=== PATIENT | female | born 1955 | race Two or more races ===

== ENCOUNTER 2021-01-29 18:03 | Inpatient (IN) | payer BC ==
[~2021-01-29] VITALS: Ht 149.9 cm; Wt 61.7 kg
[2021-01-29] MEDS ORDERED: ONDANSETRON HCL/PF 4 MG/2 ML VIAL ONE (18:55)
[2021-01-29] MEDS ORDERED: ONDANSETRON HCL/PF 4 MG/2 ML VIAL IVP ONE (19:00)
[2021-01-29] MEDS ORDERED: IV NS 0.9% 1,000 ML BAG IV ONE ×2 (19:00→20:00)
[2021-01-29 19:09] LABS: EOSINOPHILS % (AUTO) 0.2 % (0.0-6.0); HEMOGLOBIN 11.1 g/dL (11.5-14.8); LYMPHOCYTES # (AUTO) 0.6 /CMM (0.8-4.8); WHITE BLOOD COUNT (AUTO) 3.3 K/uL (4.3-11.0)
[2021-01-29 19:13] LABS: BASOPHILS % (AUTO) 0.3 % (0.0-2.0); HEMATOCRIT 34 % (33-45); LYMPHOCYTES % (AUTO) 18.4 % (20.0-44.0); MEAN CORPUSCULAR HGB CONC 33 g/dl (31.0-36.0); MEAN CORPUSCULAR VOLUME 88 fL (82-100); MONOCYTES % (AUTO) 0.8 % (2.0-12.0); NEUTROPHILS # (AUTO) 2.6 /CMM (1.8-8.9); NEUTROPHILS % (AUTO) 80.3 % (43.0-81.0); PLATELET COUNT (AUTO) 158 /CMM (150-450); RED BLOOD CELL COUNT(AUTO) 3.85 MIL/uL (4.0-5.2)
--- NOTE | 2021-01-29 19:19 | NUR ---
BIBDAUGHTER FROM HOME TO ER BED 6. AAOX4. NOT IN RESP DISTRESS, BREATHING EVEN AND UNLABORED. AMBULATORY. CAME IN FOR NAUSEA, VOMMITING, DIARRHEA, BODY ACHES AND FEVER FOR THE PAST 3 DAYS. UPON RECEIVING PT, SHE HAD AN EPISODE OF BOWEL INCONTINENCE WHICH WAS WATERY. DAUGHTER STATES THAT SHE HAVE BEEN VOMMITING AND NAUSEOUS. FEVER NOTED @ 101.4. WAST AT THE BEDSIDE FOR EVAL. ORDERS RECEIVED, NOTD AND CARRIED OUT.
[2021-01-29] MEDS ORDERED: ACETAMINOPHEN ES 500 MG TABLET PO ONE (19:30)
[2021-01-29 19:31] LABS: CALCIUM, SERUM 8.7 mg/dL (8.5-10.1); CARBON DIOXIDE 17 mmol/L (21-32); CHLORIDE 99 mmol/L (98-107); GLUCOSE 222 mg/dL (74-106); POTASSIUM 4.6 mmol/L (3.5-5.1); SODIUM SERUM 133 mmol/L (136-145); UREA NITROGEN, BLOOD 36 mg/dL (7-18)
[2021-01-29 19:36] LABS: ALANINE AMINOTRANSFERASE 34 U/L (12-78); ALBUMIN 2.7 g/dL (3.4-5.0); ALKALINE PHOSPHATASE 123 U/L (46-116); ASPARTATE AMINOTRANSFERASE 51 U/L (15-37); BILIRUBIN,DIRECT 0.4 mg/dL (0.0-0.2); BILIRUBIN,TOTAL 1.1 mg/dL (0.2-1.0); TOTAL PROTEIN, SERUM 7.8 g/dL (6.4-8.2)
[2021-01-29] MEDS ORDERED: ACETAMINOPHEN ES 500 MG TABLET ONE (19:38)
[2021-01-29 19:56] LABS: BILIRUBIN,URINE Negative (NEGATIVE); COLOR,URINE DARK YELLOW (YELLOW); LEUKOCYTE ESTERASE ,URINE Small (NEGATIVE); NITRITE, URINE Positive (NEGATIVE); PH,URINE 5.5 (5.0-8.0); PROTEIN,URINE >=300 mg/dl (NEGATIVE); UGLUCOSE Negative (NEGATIVE); UROBILINOGEN,URINE 0.2 EU/dL (0.2)
--- NOTE | 2021-01-29 19:56 | NUR ---
NEGATIVE COVID RESULT
[2021-01-29 20:22] LABS: BACTERIA,URINE Many /HPF (None Seen); WBC,URINE 81-100 /HPF (0-3)
[2021-01-29 20:23] LABS: SQUAMOUS EPITHELIAL CELL,UR Few /HPF (None Seen)
[2021-01-29] MEDS ORDERED: VANCOMYCIN 1 GM in IV D5W 250 ML IV ONE (20:30)
[2021-01-29] MEDS ORDERED: PIPERACILLIN /TAZOBACTAM 3.375 G in IV D5W 50 ML IV ONE (20:30)
[2021-01-29 20:33] LABS: BAND % (MANUAL) 30 % (0.0-5.0); LYMPHOCYTES % (MANUAL) 18 % (16-48); MONOCYTES % (MANUAL) 2 % (0-11.0); NEUTROPHILS % (MANUAL) 50 (42-76)
--- NOTE | 2021-01-29 20:47 | NUR ---
md aware of bp 95/48. fluid still running. will reassess once fluids completed.
[2021-01-29] MEDS ORDERED: PIPERACILLIN /TAZOBACTAM 3.375 G VIAL IV ONE (20:54)
[2021-01-29] MEDS ORDERED: VANCOMYCIN 1 GM VIAL ONE (20:54)
[2021-01-29] MEDS ORDERED: NOREPINEPHRINE 4 MG/4 ML AMPUL IV ONE (21:46)
[2021-01-29] MEDS ORDERED: NOREPINEPHRINE 8 MG in IV NS 0.9% 250 ML IV ONE (22:00)
--- NOTE | 2021-01-29 22:03 | NUR ---
dr. bowers at bedside.
--- NOTE | 2021-01-29 22:08 | NUR ---
LEVOPHED INCREASED TO 0.2MCG/KG/MIN. BP: 92/51 HR: 100
--- NOTE | 2021-01-29 22:10 | NUR ---
CONSENT FOR SURGERY OBTAINED FROM PT BY DR. MCCANN AT BEDSIDE
--- NOTE | 2021-01-29 22:15 | NUR ---
PREOP CHECKLIST DONE
[2021-01-29] MEDS ORDERED: IV NS 0.9% 1,000 ML IV PRN (22:30)
[2021-01-29] MEDS ORDERED: MORPHINE SULFATE INJ 2 MG/ML DISP.SYRIN IV PRN (22:30)
[2021-01-29] MEDS ORDERED: HYDROCODONE/APAP 5/325MG TABLET PO PRN (22:30)
[2021-01-29] MEDS ORDERED: INSULIN REGULAR, HUMAN 100 UNIT/ML 3 ML VIAL SQ PRN (22:30)
[2021-01-29] MEDS ORDERED: Z GUARD REMEDY 2 OZ OINT TP PRN (22:30)
[2021-01-29] MEDS ORDERED: MAGNESIUM HYDROXIDE 30 ML UDC PO PRN (22:30)
[2021-01-29] MEDS ORDERED: MAG HYDROX/AL HYDROX/SIMETH 30 ML UDC PO PRN (22:30)
[2021-01-29] MEDS ORDERED: DEXTROSE 50%-WATER 50 ML DISP.SYRIN IV PRN (22:30)
--- NOTE | 2021-01-29 22:32 | NUR ---
PT'S DAUGHTER UPDATED REGARDING PT. SHE WAS MADE AWARE THAT HER MOM IS GOING TO SURGERY FOR AN OBSTRUCTED KIDNEY STONE.
[2021-01-29] MEDS ORDERED: MIDAZOLAM HCL 2 MG/2ML VIAL ONE (22:47)
--- NOTE | 2021-01-29 22:50 | NUR ---
PT TRANSPORTED TO OR BY 2 OR TECH. REPORT GIVEN,.
--- NOTE | 2021-01-29 23:26 | NUR ---
ICU 258
--- NOTE | 2021-01-29 23:31 | NUR ---
repot given to FRANCISCA Rodrigues from ICU for yony after pt come out of surgery. Recovery room nurse will give their own report.
[2021-01-29] MEDS: NOREPINEPHRINE 8 MG in IV NS 0.9% 242 ML IV PRN (23:40)
--- NOTE | 2021-01-29 23:50 | NUR ---
ADMITTED PT FROM PACU ON [facility] ACCOMPANIED BY ANESTHESIOLOGIST AND PACU NURSE, AWAKE A/O X4 ABLE TO COMMUNICATE, ON O2 2L VIA NC, NO SIGN OR DISTRESS, PAIN ON LEFT SIDE COMPLAIN BUT TOLERATING 4/10, ABLE TO MOVE FROM [facility] TO BED WITH ASSISTANCE, PATIENT HAVE LAC #18 WITH ONGOING LEVOPHED @ 0.2 MCG/KG/MIN WITH BP 105/51,AND RIGHT HAND #20 PATENT AND FLUSHED, HOOKED TO BEDSIDE MONITOR WITH READING OF SINUS TACHY 110'S SPO2 100%, TEMP IS 98.7,HEAD TO TOE ASSESSMENT DONE, ADMISSION ASSESSMENT DONE, BED ON LOWEST POSITION AND LOCKED SIDE RAILS UP X 2 CALL LIGHT WITHIN REACH WILL CONT TO MONITOR
[2021-01-29 23:52] VITALS: BP 126/60
[2021-01-30] VITALS (100 sets, daily range): BP systolic 70–155; BP diastolic 36–90
[2021-01-30] MEDS ORDERED: BLOOD SUGAR DIAGNOSTIC 1 EACH STRIP IN SCH
[2021-01-30] MEDS ORDERED: PIPERACILLIN /TAZOBACTAM 3.375 G in IV D5W 50 ML IV SCH
[2021-01-30] MEDS ORDERED: PIPERACILLIN /TAZOBACTAM 3.375 G VIAL IV ONE ×2 (01:16→05:34)
[2021-01-30] MEDS: ZOSYN IVPB 3.375 G in IV D5W 50ml IV SCH ×2 (01:19→06:09)
[2021-01-30] MEDS ORDERED: DEXTROSE 50%-WATER 50 ML DISP.SYRIN IV PRN (01:30)
--- NOTE | 2021-01-30 03:08 | NUR ---
PT SLEEPING ON BED EASY TO WAKE UP, NO SIGN AND SYMPTOMS OF RESPIRATORY DISTRESS, ON O2 2L VIA NC SPO2 100% STILL ON LEVOPHED @ 0.2 MCG/KG/MIN WITH BP OF 122/62 WILL CONT TO MONITOR THE PT
[2021-01-30 04:26] LABS: HEMATOCRIT 31 % (33-45); HEMOGLOBIN 9.7 g/dL (11.5-14.8); LYMPHOCYTES # (AUTO) 0.5 /CMM (0.8-4.8); LYMPHOCYTES % (AUTO) 3.3 % (20.0-44.0); MEAN CORPUSCULAR HGB CONC 32 g/dl (31.0-36.0); MEAN CORPUSCULAR VOLUME 90 fL (82-100); MONOCYTES # (AUTO) 0.3 /CMM (0.1-1.30); MONOCYTES % (AUTO) 1.6 % (2.0-12.0); NEUTROPHILS # (AUTO) 14.7 /CMM (1.8-8.9); NEUTROPHILS % (AUTO) 95.1 % (43.0-81.0); PLATELET COUNT (AUTO) 143 /CMM (150-450); RED BLOOD CELL COUNT(AUTO) 3.42 MIL/uL (4.0-5.2); WHITE BLOOD COUNT (AUTO) 15.4 K/uL (4.3-11.0)
[2021-01-30 04:53] LABS: THYROID STIMULATING HORMONE 0.836 uIU/mL (0.358-3.74)
[2021-01-30 05:00] LABS: CALCIUM, SERUM 7.7 mg/dL (8.5-10.1); CREATININE 2.6 mg/dL (0.6-1.3); MAGNESIUM 1.9 mg/dL (1.8-2.4); PHOSPHORUS 3.6 mg/dL (2.5-4.9); POTASSIUM 4.5 mmol/L (3.5-5.1)
[2021-01-30] MEDS: ONDANSETRON HCL/PF 4 MG/2 ML VIAL IVP PRN ×2 (05:45→13:41)
--- NOTE | 2021-01-30 06:52 | NUR ---
PT ON BED AWAKE, NO COMPLAIN OF ANY PAIN, NO SIGN OF ANY RESPIRATORY DISTRESS, ALL NEEDS ATTENDED, STILL ON LEVOPHED 0.1 MCG/KG/MIN, TELE MONITOR READS SINUS RHYTHM ON 89, BED ON LOWEST POSITION AND LOCKED SIDE RAILS UP X 2 CALL LIGHT WITHIN REACH WILL ENDORSED TO AM SHIFT NURSE
--- NOTE | 2021-01-30 07:00 | NUR ---
RN NOTES RECEIVED PT ON BED, A/Ox4,ON 2L O2 N/C , NO SOB NOTED, ON TELE SR HR IN 80'S, R HAND AND L AC IV SITES CLEAN, DRY AND INTACT, NS AT 100CC/HR RUNNING , LEVO AT .1 MCG /KG/MIN RUNNING FOR BP SUPPORT, SR UP x3, CALL LIGHT WITHIN EASY REACH, BED LOCKED AND IN LOWEST POSITION, CONTINUE TO MONITOR.
[2021-01-30] MEDS: INSULIN REGULAR, HUMAN 100 UNIT/ML 3 ML VIAL SQ PRN ×2 (07:54→11:25)
[2021-01-30] MEDS: BLOOD SUGAR DIAGNOSTIC 1 EACH STRIP VI SCH ×4 (07:55→21:16)
[2021-01-30] MEDS ORDERED: GLIP5TAB13 PO (08:13)
[2021-01-30] MEDS: HEPARIN SODIUM, PORCINE 5000 UNITS/1 ML VIAL SQ SCH ×2 (08:53→21:17)
[2021-01-30] MEDS: IV NS 0.9% 1,000 ML IV PRN ×3 (09:14→23:55)
[2021-01-30] MEDS: NOREPINEPHRINE 8 MG in IV NS 0.9% 242 ML IV PRN (09:53)
[2021-01-30] MEDS: PIPERACILLIN /TAZOBACTAM 2.25 G in IV D5W 50 ML IV SCH ×2 (11:17→17:09)
--- NOTE | 2021-01-30 13:00 | NUR ---
RN NOTES DR ORITZ NOTIFED REGARDING TROPONIN 1.301 , NO NEW ORDER RECEIVED . CONTINUE TO MONITOR .
--- NOTE | 2021-01-30 16:21 | NUR ---
RN NOTES BG =53, NO SIGN AND SYMPTOMS OF HYPOGLYCEMIA NOTED . PT IS A/Ox4, PT DENIES ANY DISTRESS AND EATING , OJ GIVEN , CONTINUE TO MONITOR.
--- NOTE | 2021-01-30 19:13 | NUR ---
RN NOTES PT STABLE, ON LEVO AT .02 MCG/KG/MIN FOR BP SUPPORT, BM x1 NOTED, NS AT 250CC/HR RUNNING , NO SIGNIFICANT CHANGES NOTED ON THIS SHIFT, SR UP x3, CALL LIGHT WITHIN EASY REACH, BED LOCKED AND IN LOWEST POSITION , WILL ENDORSE TO CAR MANAGER NURSE FOR CONTINUITY OF CARE.
--- NOTE | 2021-01-30 19:35 | NUR ---
RN NOTE REC PT IN BED RESTING. A/OX4. AT THIS TIME ON ROOM AIR STABLE NO RESP DISTRESS OR SOB NOTED. O2SAT 98% PT PRESENTS WITH NSR HEART RATE 89. PT HAS IVF ORDERED. AND ON LEVO AT 0.02 MCG/KG/MIN. BP WNL ORDERED AT THIS TIME. ALL NEEDS ATTENDED AT THIS TIME. SAFETY MEASURES IN PLACE. HOB ELEVATED. SIDE RAILS UP X2 BED LOCKED IN LOWEST POSITION CALL LIGHT WITHIN REACH WILL CONT TO MONITOR.
--- NOTE | 2021-01-30 20:20 | NUR ---
RN NOTE PT HAS SOFT FORMED PARTIALLY LOOSE BM NOTED SHANNAN CARE PROVIDED
[2021-01-30 21:11] LABS: CREATININE 2.1 mg/dL (0.6-1.3)
[2021-01-30] MEDS: CEFTRIAXONE 2 G in IV D5W 100 ML IV SCH (21:15)
[2021-01-30] MEDS: METRONIDAZOLE 500MG/ NS 100ML 500 MG in PREMIX 1 EA IV SCH (21:15)
--- NOTE | 2021-01-30 21:15 | NUR ---
RN NOTE PT NOTED TO HAVE TEMP OF 100.1 TYLENOL GIVEN PRN, PT REFUSES ICE PACKS Addendum: 01/31/21 at 0020 by RAMBO BENITES RN RECHECK TEMP 98.7
[2021-01-30] MEDS: ACETAMINOPHEN 325 MG TABLET PO PRN (21:16)
--- NOTE | 2021-01-30 21:30 | NUR ---
RN NOTE PT COMPLAINING OF CHEST PAIN @2029 EKG ORDERED, TROPONIN BMP ORDERED. EKG RESULT NSR @2108 TROPONIN RESULT TRENDING DOWN- RESULT OF 0.840 NOTIFIED COUNSELING CENTER DIRECTOR JAYY GIANG NO NEW ORDERS AT THIS TIME
[2021-01-30] MEDS ORDERED: VANCOMYCIN 0.75 GM in IV D5W 250 ML IV SCH (22:00)
--- NOTE | 2021-01-30 22:31 | NUR ---
RN NOTE PT GLUCOSE IS 88, GIVEN HX, PROVIDED JUICE
--- NOTE | 2021-01-30 23:30 | NUR ---
RN NOTE PT DENIES CHEST PAIN AT THIS TIME, JUST MINIMAL ABDOMINAL/LOWER BACK PAIN / PT VERBALIZED TYLENOL HELPED
[2021-01-31] VITALS (48 sets, daily range): BP systolic 97–154; BP diastolic 53–95
--- NOTE | 2021-01-31 00:20 | NUR ---
RN NOTE SPOKE WITH DAUGHTER TEOODRO FOR UPDATE, SAYS WILL VISIT TOMORROW
[2021-01-31 04:22] LABS: BASOPHILS % (AUTO) 0.4 % (0.0-2.0); EOSINOPHILS % (AUTO) 0.9 % (0.0-6.0); HEMATOCRIT 26 % (33-45); HEMOGLOBIN 8.5 g/dL (11.5-14.8); LYMPHOCYTES # (AUTO) 1.2 /CMM (0.8-4.8); LYMPHOCYTES % (AUTO) 10.6 % (20.0-44.0); MEAN CORPUSCULAR HGB CONC 33 g/dl (31.0-36.0); MEAN CORPUSCULAR VOLUME 88 fL (82-100); MONOCYTES # (AUTO) 0.4 /CMM (0.1-1.30); MONOCYTES % (AUTO) 3.6 % (2.0-12.0); NEUTROPHILS # (AUTO) 9.6 /CMM (1.8-8.9); NEUTROPHILS % (AUTO) 84.5 % (43.0-81.0); PLATELET COUNT (AUTO) 144 /CMM (150-450); RED BLOOD CELL COUNT(AUTO) 2.93 MIL/uL (4.0-5.2); WHITE BLOOD COUNT (AUTO) 11.3 K/uL (4.3-11.0)
[2021-01-31 04:52] LABS: ALBUMIN 1.7 g/dL (3.4-5.0); BILIRUBIN,TOTAL 0.2 mg/dL (0.2-1.0); CALCIUM, SERUM 7.1 mg/dL (8.5-10.1); PHOSPHORUS 2.1 mg/dL (2.5-4.9); POTASSIUM 3.7 mmol/L (3.5-5.1)
[2021-01-31] MEDS: METRONIDAZOLE 500MG/ NS 100ML 500 MG in PREMIX 1 EA IV SCH ×3 (05:10→21:32)
[2021-01-31] MEDS: IV NS 0.9% 1,000 ML IV PRN ×2 (06:19→10:44)
--- NOTE | 2021-01-31 07:28 | NUR ---
RN CLOSING NOTE NO SIGNIFICANT CHANGES IN PT CONDITION. PT REMAINS ON 2L OF O2 VIA NC FOR COMFORT, PER HER REQUEST. AT THIS TIME NO SO OR RESP DISTRESS. PT STILL REMAINS WITH NSR, HEART RATE IN THE 80S. PT DENIES PAIN, DENIES CHEST PAIN, VERBALIZES ABDOMINAL DISCOMFORT, DOES NOT WANT MEDICATION AT THIS TIME. AM LABS HAS GLUCOSE AT 66, GAVE PT NOURISHMENT/SNACKS. SAFETY MEASURES IN PLACE. ALL NEEDS ATTENDED. HOB ELEVATED. SIDE RAILS UP X2, BED LOCKED IN LOWEST POSITION. CALL LIGHT WITHIN REACH. WILL ENDORSE TO DAY SHIFT FOR CONTINUATION OF CARE.
--- NOTE | 2021-01-31 08:00 | NUR ---
RN OPENING NOTE RECEIVED PT RESTING IN BED, AWAKE. A/O X4. ON 2L OF O2 VIA NC PER REQUEST, O2 SAT @100%. NO SOB OR ANY S/S OF RESPIRATORY DISTRESS. NSR ON TELE MONITOR, HR @90. NO PAIN REPORTED AT THIS TIME. SKIN IS INTACT. MEDINA CATH IN PLACE, DRAINING YELLOW URINE. SAFETY MEASURES IN PLACE. CALL LIGHT WITHIN REACH. BED LOCKED AND IN LOWEST POSITION WITH SIDE RAILS UP X2. HOB ELEVATED. WILL CONTINUE TO MONITOR.
[2021-01-31] MEDS: BLOOD SUGAR DIAGNOSTIC 1 EACH STRIP VI SCH ×4 (08:24→22:00)
--- NOTE | 2021-01-31 08:24 | NUR ---
RN NOTES BS OF 72. NO INSULIN COVERAGE. ENCOURAGED PO INTAKE.
[2021-01-31] MEDS: ONDANSETRON HCL/PF 4 MG/2 ML VIAL IVP PRN ×2 (08:53→21:48)
[2021-01-31] MEDS: HEPARIN SODIUM, PORCINE 5000 UNITS/1 ML VIAL SQ SCH ×2 (08:58→21:35)
--- NOTE | 2021-01-31 11:15 | NUR ---
TELE/RN NOTES RECEIVED PATIENT, A TRANSFER FROM ICU. ENDORSED BY ROSAS (RN,ICU). WITH A DIAGNOSIS OF SEPSIS, SEPTIC SHOCK AND PYELONEPHRITIS. PATIENT IS ALERT AND ORIENTED X4. ABLE TO MAKE NEEDS KNOWN. TANZANIAN AND INDONESIAN SPEAKING. ON TELE MONITOR. STABLE ON ROOM AIR WITH AN O2 SAT OF 96%. NO SOB NOTED AT THIS TIME. SKIN INTACT. MEDINA CATHETER IN PLACE DRAINING INTO A CLEAR YELLOW URINE. ON CHHO 60 GRAM DIET. LEFT UPPER ARM MIDLINE G#18 INTACT WITH NS RUNNING AT 250ML/HR. LEFT AC G18 IS INTACT AND PATENT ON SALINE LOCKED. WILL BE CONTINUING IV ATB. NO PAIN OR DISTRESS NOTED AT THIS TIME. SAFETY PRECAUTIONS IN PLACED. BED LOCKED ON LOWEST POSITION, BED ALARM ON, CALL LIGHT WITHIN REACH. WILL CONTINUE TO MONITOR.
--- NOTE | 2021-01-31 11:31 | NUR ---
RN NOTES TRANSFERRED PT TO 3W, ROOM 308-2 PER ACLS PROTOCOL. VS STABLE. NOT IN DISTRESS. REPORT GIVEN TO SALVADOR ESPINOSA FOR [place].
[2021-01-31] MEDS: IV D5/0.45 NACL 1,000 ML IV PRN (12:49)
[2021-01-31] MEDS: ACETAMINOPHEN 325 MG TABLET PO PRN (13:52)
[2021-01-31] MEDS ORDERED: NEUTRA PHOS 1 POWD.PACKET PO ONE (15:00)
--- NOTE | 2021-01-31 18:54 | NUR ---
TELE/RN CLOSING NOTES PATIENT IN BED. ON TELE MONITOR WITH SR ON 80'S. STABLE ON ROOM AIR WITH AN O2 SAT OF 100%. NO SOB NOTED AT THIS TIME. SKIN INTACT. MEDINA CATHETER IN PLACE DRAINING INTO A CLEAR YELLOW URINE. ON CHHO 60 GRAM DIET. LEFT UPPER ARM MIDLINE G#18 INTACT WITH D5 1/2 NS AT 50ML/HR. LEFT AC G18 IS INTACT AND PATENT ON SALINE LOCKED. WILL BE CONTINUING IV ATB. NO PAIN OR DISTRESS NOTED AT THIS TIME. SAFETY PRECAUTIONS IN PLACED. BED LOCKED ON LOWEST POSITION, BED ALARM ON, CALL LIGHT WITHIN REACH. WILL ENDORSE TO THE NEXT SHIFT FOR CONTINUITY OF CARE.
--- NOTE | 2021-01-31 19:33 | NUR ---
ELECTRICAL ENGINEERING DESIGNER OPENING NOTE PATIENT A/O X4; ABLE TO MAKE NEEDS KNOWN. ON ROOM AIR, TOLERATING WELL WITH NO SOB. EXTERNAL MACHINE CLOTHING REPLACER READS NSR AT 80'S. F/C DRAINING CLEAR YELLOW URINE; PATENT AND INTACT. MAYRA #18G MIDLINE D5 1/2NS @ 50ML/HR. PATIENT DENIES PAIN. SAFETY MEASURES IN PLACE : SIDE RAILS UPX2, CALL LIGHT WITH EASY REACH, BED TO LOWEST LOCKED POSITION, BED ALARMS ON. PATIENT IN NO DISTRESS AT THIS TIME, WILL CONTINUE PLAN OF CARE.
[2021-01-31] MEDS: CEFTRIAXONE 2 G in IV D5W 100 ML IV SCH (21:32)
--- NOTE | 2021-01-31 21:48 | NUR ---
ALL AROUND PRESSER NOTE PATIENT C/O NAUSEA AND GAGGING WITH NO EMESIS. ADMINISTERED ZOFRAN ORDERED. WILL ASSESS FOR N/V WITHIN 1 HOUR.
[2021-01-31] MEDS: *INSULIN REGULAR(HUMULIN R)HUM 100 UNIT/ML VIAL SQ PRN (22:25)
[2021-02-01] VITALS: BP 142/72
[2021-02-01 04:00] VITALS: BP 121/72
[2021-02-01] MEDS: METRONIDAZOLE 500MG/ NS 100ML 500 MG in PREMIX 1 EA IV SCH ×4 (04:00→21:20)
--- NOTE | 2021-02-01 05:40 | NUR ---
PREFORMER IMPREGNATED FABRICS CLOSING NOTE PATIENT A/O X4; ABLE TO MAKE NEEDS KNOWN. ON ROOM AIR, TOLERATING WELL WITH NO SOB. EXTERNAL INDUSTRIAL ORGANIZATIONAL PSYCHOLOGIST READS NSR AT 80'S. F/C DRAINING CLEAR YELLOW URINE; PATENT AND INTACT. MAYRA #18G MIDLINE D5 1/2NS @ 50ML/HR. R HAND #20G S/L; PATENT AND INTACT. PATIENT DENIES PAIN. SAFETY MEASURES IN PLACE: SIDE RAILS UPX2, CALL LIGHT WITHIN EASY REACH, BED TO LOWEST LOCKED POSITION, BED ALARMS ON. PATIENT IN NO DISTRESS AT THIS TIME, WILL ENDORSE PLAN OF CARE TO ONCOMING MORNING RN.
[2021-02-01 06:12] LABS: BASOPHILS % (AUTO) 0.4 % (0.0-2.0); EOSINOPHILS % (AUTO) 0.9 % (0.0-6.0); HEMATOCRIT 27 % (33-45); LYMPHOCYTES # (AUTO) 1.4 /CMM (0.8-4.8); LYMPHOCYTES % (AUTO) 14.3 % (20.0-44.0); MEAN CORPUSCULAR HGB CONC 33 g/dl (31.0-36.0); MEAN CORPUSCULAR VOLUME 87 fL (82-100); MONOCYTES # (AUTO) 0.7 /CMM (0.1-1.30); MONOCYTES % (AUTO) 6.9 % (2.0-12.0); NEUTROPHILS # (AUTO) 7.5 /CMM (1.8-8.9); NEUTROPHILS % (AUTO) 77.5 % (43.0-81.0); PLATELET COUNT (AUTO) 180 /CMM (150-450); RED BLOOD CELL COUNT(AUTO) 3.15 MIL/uL (4.0-5.2); WHITE BLOOD COUNT (AUTO) 9.7 K/uL (4.3-11.0)
[2021-02-01] MEDS: INSULIN REGULAR, HUMAN 100 UNIT/ML 3 ML VIAL SQ PRN ×3 (06:16→17:07)
[2021-02-01] MEDS: BLOOD SUGAR DIAGNOSTIC 1 EACH STRIP VI SCH ×4 (06:40→21:20)
[2021-02-01 07:26] LABS: CALCIUM, SERUM 7.4 mg/dL (8.5-10.1); CREATININE 1.5 mg/dL (0.6-1.3); MAGNESIUM 1.8 mg/dL (1.8-2.4); PHOSPHORUS 2.9 mg/dL (2.5-4.9); POTASSIUM 3.5 mmol/L (3.5-5.1)
--- NOTE | 2021-02-01 07:53 | NUR ---
SUPERVISOR DRYING AND WINDING OPENING NOTE RECEIVED PATIENT RESTING COMFORTABLY IN BED, A/O X4. ON ROOM AIR - TOLERATING WELL WITH NO SOB NOTED. EXTERNAL CLINICAL TRIALS MANAGER READS NSR IN THE 80'S. MEDINA CATHETER DRAINING CLEAR YELLOW URINE - PATENT AND INTACT. IV ACCESS TO LEFT UA #18G MIDLINE - RUNNING D5 1/2NS @ 50ML/HR. NO PAIN NOTED AT THIS TIME. SAFETY MEASURES IN PLACE. CALL LIGHT WITHIN REACH. WILL CONTINUE TO MONITOR.
[2021-02-01 08:00] VITALS: BP 144/69
[2021-02-01] MEDS: HEPARIN SODIUM, PORCINE 5000 UNITS/1 ML VIAL SQ SCH ×2 (08:29→20:14)
[2021-02-01] MEDS: ASPIRIN 81 MG TAB.CHEW PO SCH (11:01)
[2021-02-01 15:54] VITALS: BP 157/79
[2021-02-01] MEDS: IV D5/0.45 NACL 1,000 ML IV PRN (16:02)
--- NOTE | 2021-02-01 18:30 | NUR ---
HOSPITAL ATTENDANT CLOSING NOTE PATIENT IS CURRENTLY RESTING COMFORTABLY IN BED, A/O X4. ON ROOM AIR - TOLERATING WEL - NO SOB NOTED. NO RESPIRATORY DISTRESS NOTED. NO PAIN AT THIS TIME. MEDINA CATHETER IN PLACE AND PATENT, DRAINING CLEAR YELLOW URINE - OUTPUT OF 2000CC THIS SHIFT. IV ACCESS TO LEFT UA #18G MIDLINE - RUNNING D5 1/2NS @ 50ML/HR. SAFETY MEASURES IN PLACE. CALL LIGHT WITHIN REACH. WILL CONTINUE TO MONITOR.
--- NOTE | 2021-02-01 19:30 | NUR ---
MS RN OPENING NOTES Patient is awake, alert, and oriented x4. Denies pain or discomfort at this time. Denies nausea. IV to LAC is patent and flushed. MAYRA midline patent and infusing D5 1/2NS at 50cc/hr. Darinel signs of infiltration or phlebitis.
[2021-02-01 20:00] VITALS: BP 156/87
[2021-02-01] MEDS: CEFTRIAXONE 2 G in IV D5W 100 ML IV SCH (20:11)
[2021-02-01] MEDS: *INSULIN REGULAR(HUMULIN R)HUM 100 UNIT/ML VIAL SQ PRN (21:56)
[2021-02-02] MEDS: METRONIDAZOLE 500MG/ NS 100ML 500 MG in PREMIX 1 EA IV SCH (04:28)
--- NOTE | 2021-02-02 06:12 | NUR ---
MS RN CLOSING NOTES Patient is A&Ox4. In calm and pleasant mood. VSS. Afebrile. No c/o pain or discomfort. No overnight events. Patient tolerating IV ABX well with no adverse side effects. Tolerating IV fluids as well. FC output 900cc.
[2021-02-02 06:17] LABS: BASOPHILS % (AUTO) 0.3 % (0.0-2.0); HEMATOCRIT 29 % (33-45); HEMOGLOBIN 9.6 g/dL (11.5-14.8); LYMPHOCYTES # (AUTO) 1.5 /CMM (0.8-4.8); LYMPHOCYTES % (AUTO) 18.3 % (20.0-44.0); MEAN CORPUSCULAR HGB CONC 34 g/dl (31.0-36.0); MEAN CORPUSCULAR VOLUME 86 fL (82-100); MONOCYTES # (AUTO) 0.8 /CMM (0.1-1.30); MONOCYTES % (AUTO) 10.5 % (2.0-12.0); NEUTROPHILS # (AUTO) 5.6 /CMM (1.8-8.9); NEUTROPHILS % (AUTO) 68.9 % (43.0-81.0); PLATELET COUNT (AUTO) 192 /CMM (150-450); RED BLOOD CELL COUNT(AUTO) 3.32 MIL/uL (4.0-5.2); WHITE BLOOD COUNT (AUTO) 8.1 K/uL (4.3-11.0)
[2021-02-02 06:19] LABS: CREATININE 1.3 mg/dL (0.6-1.3); MAGNESIUM 1.8 mg/dL (1.8-2.4); PHOSPHORUS 3.1 mg/dL (2.5-4.9); POTASSIUM 3.7 mmol/L (3.5-5.1)
[2021-02-02 06:25] LABS: CALCIUM, SERUM 8.1 mg/dL (8.5-10.1)
[2021-02-02] MEDS: BLOOD SUGAR DIAGNOSTIC 1 EACH STRIP VI SCH ×4 (06:31→22:28)
[2021-02-02] MEDS: INSULIN REGULAR, HUMAN 100 UNIT/ML 3 ML VIAL SQ PRN ×2 (06:44→13:32)
--- NOTE | 2021-02-02 07:31 | NUR ---
COMPLIANCE ADMINISTRATOR OPENING NOTE RECEIVED PATIENT RESTING COMFORTABLY IN BED, AWAKE. A/O X4. ON ROOM AIR - TOLERATING WELL WITH NO SOB NOTED. MEDINA CATHETER DRAINING CLEAR YELLOW URINE - PATENT AND INTACT. IV ACCESS TO LEFT UA #18G MIDLINE - RUNNING D5 1/2NS @ 50ML/HR. NO PAIN NOTED AT THIS TIME. SAFETY MEASURES IN PLACE. CALL LIGHT WITHIN REACH. WILL CONTINUE TO MONITOR.
[2021-02-02 08:00] VITALS: BP 125/86
[2021-02-02] MEDS: ASPIRIN 81 MG TAB.CHEW PO SCH (08:53)
[2021-02-02] MEDS: HEPARIN SODIUM, PORCINE 5000 UNITS/1 ML VIAL SQ SCH ×2 (08:57→21:23)
[2021-02-02] MEDS ORDERED: LEVO500T90 PO (10:35)
[2021-02-02] MEDS ORDERED: LEVOFLOXACIN (250MG) 250 MG TABLET PO SCH (12:00)
[2021-02-02] MEDS ORDERED: METRONIDAZOLE 500 MG TABLET PO SCH (13:00)
[2021-02-02] MEDS: METOPROLOL TARTRATE 50 MG TABLET PO SCH ×2 (13:37→18:00)
[2021-02-02 16:00] VITALS: BP 110/56
[2021-02-02] MEDS: IV D5/0.45 NACL 1,000 ML IV PRN (17:11)
[2021-02-02] MEDS ORDERED: IOHEXOL-350 100 ML VIAL IV ONE (17:20)
[2021-02-02] MEDS ORDERED: CT SWABBABLE VALVE TRANS SET 1 EA INFUS.SET MC ONE (17:20)
[2021-02-02] MEDS ORDERED: NITROGLYCERIN 0.4 MG/TAB BOTTLE ONE (17:28)
[2021-02-02] MEDS ORDERED: METOPROLOL TARTRATE INJ 5 MG/5 ML AMPUL ONE ×4 (17:29→18:33)
--- NOTE | 2021-02-02 18:15 | NUR ---
MS RN NOTE UNABLE TO DO ACCUCHECK - PATIENT STILL IN CTA. WILL CHECK WHEN PATIENT RETURNS
--- NOTE | 2021-02-02 18:53 | NUR ---
MS RN NOTE UNABLE TO GIVE METOPROLOL - PATIENT IS STILL IN CTA. WILL ENDORSE TO ENVIRONMENTAL PROTECTION FORESTER NURSE
--- NOTE | 2021-02-02 18:53 | NUR ---
MS RN CLOSING NOTE PATIENT IS CURRENTLY RESTING COMFORTABLY IN BED, A/O X4. ON ROOM AIR - TOLERATING WELL - NO SOB NOTED. NO RESPIRATORY DISTRESS NOTED. NO PAIN AT THIS TIME. MEDINA CATHETER IN PLACE AND PATENT, DRAINING CLEAR YELLOW URINE - OUTPUT OF 2000CC THIS SHIFT. IV ACCESS TO LEFT UA #18G MIDLINE - RUNNING D5 1/2NS @ 50ML/HR. PATIENT OK TO DC IF CTA IS NEGATIVE. DC ORDER PUT IN BY LAUREN MCGOVERN. WILL ENDORSE TO ONCOMING RN. SAFETY MEASURES IN PLACE. CALL LIGHT WITHIN REACH. WILL ENDORSE TO LIGHTING TECHNICIAN NURSE FOR [place].
[2021-02-02] MEDS ORDERED: METOPROLOL TARTRATE INJ 5 MG/5 ML AMPUL IVP STA (18:56)
[2021-02-02] MEDS ORDERED: NITROGLYCERIN 4.9 GM SPRAY SL ONE ×2 (19:00→19:03)
--- NOTE | 2021-02-02 19:15 | NUR ---
MS RN NOTES CAME BACK FROM CTA,VIA SOHAIL,PER POWER ELECTRONICS ENGINEER,PATIENT WAS GIVEN LOPRESSOR 50MG IVF AND NITRO SUBLINGUAL AT 1905,WAITING FOR RESULT, TO TRANSMIT TO DR ORTIZ,AND IF NEGATIVE,PATIENT WILL BE DISCHARGE HOME.
[2021-02-02 20:05] VITALS: BP 151/70
--- NOTE | 2021-02-02 22:00 | NUR ---
MS RN NOTES CTA RESULTS OF CORONARY ARTERIES IN.RESULT RELAY TO TOMMY MARTINEZ TO DISCHARGE HOME
[2021-02-02] MEDS: *INSULIN REGULAR(HUMULIN R)HUM 100 UNIT/ML VIAL SQ PRN (22:29)
--- NOTE | 2021-02-02 22:30 | NUR ---
MS RN NOTES MEDINA CATH REMOVED,MIDLINE AND SALINE LOCK REMOVED AND ID BAND REMOVED.
--- NOTE | 2021-02-02 22:30 | NUR ---
MS RN NOTES ACCU-CHECK BLOOD SUGAR CHECK 174,COVERED WITH HUMULIN R 3 UNITS PER SLIDING SCALE,GIVEN SQ ON RIGHT DELTOID
--- NOTE | 2021-02-02 23:00 | NUR ---
MS RN NOTED DISCHARGE HOME,PICK BY DAUGHTER YEESY ON PRIVATE TRANSPORTATION ,IN STABLE CONDITION.
== END 2021-02-02 23:00 | disposition home or self-care (01) | DRG 853 ==
LOC: ER 18:03 → MERGE 23:31 → ICU 23:31 → TELE 01-31 11:07 → MED 02-01 11:52
PROVIDERS: ADMIT Nurse Practitioner Acute Care; ATTEND Nurse Practitioner Acute Care
PROC: 0T778DZ Dilation of Left Ureter with Intraluminal Device, Via Natural or Artificial Opening Endoscopic (ICD-10-PCS; principal; 2021-01-29)
PROC: BT17YZZ Fluoroscopy of Left Ureter using Other Contrast (ICD-10-PCS; 2021-01-29)
PROC: 05HC33Z Insertion of Infusion Device into Left Basilic Vein, Percutaneous Approach (ICD-10-PCS; 2021-01-30)
DX: A41.50 Gram-negative sepsis, unspecified (principal); R65.21 Severe sepsis with septic shock; I21.A1 Myocardial infarction type 2; N17.0 Acute kidney failure with tubular necrosis; E87.1 Hypo-osmolality and hyponatremia; E87.2 Acidosis; J90 Pleural effusion, not elsewhere classified; N13.6 Pyonephrosis; J98.11 Atelectasis; I10 Essential (primary) hypertension; Z87.442 Personal history of urinary calculi; E11.9 Type 2 diabetes mellitus without complications; Z20.822 Contact with and (suspected) exposure to COVID-19; D72.819 Decreased white blood cell count, unspecified; N13.9 Obstructive and reflux uropathy, unspecified; I95.9 Hypotension, unspecified; I25.10 Atherosclerotic heart disease of native coronary artery without angina pectoris; E86.1 Hypovolemia; M89.9 Disorder of bone, unspecified
CPT/HCPCS: 36410; 36415; 71045-TC; 74018; 75574; 76770-TC; 80048-TC; 80053-TC; 80061-TC; 80076-TC; 81001; 82533; 82728-TC; 82962-TC; 83540-TC; 83605-TC; 83735-TC; 84100-TC; 84439-TC; 84443-TC; 84484-TC; 85025-TC; 85730-TC; 87040-TC; 87081-TC; 87086-TC; 87186-TC; 93307-TC; 97116-TC; 97530-TC; A4216; A4217; C1769; C2617; C9803; G0378; J0696; J1644; J1815; J2250; J2405; J2543; J2704; J3370; J3490; J7030; J7042; J7050; J7060; Q9967

== ENCOUNTER 2021-03-17 12:02 | Emergency (ER) | payer BC ==
[~2021-03-17] VITALS: Ht 170.2 cm; Wt 57.6 kg
[~2021-03-17 12:02] MED LIST: GLIP5TAB13 PO; LEVO500T90 PO
--- NOTE | 2021-03-17 12:02 | NUR ---
PT BIB DAUGHTER C/O DIARRHEA FOR 2 WEEKS. PT IS AAOX4, NOT IN RESPIRATORY DISTRESS, HOOKED TO SURGICAL SERVICES ASST, KEPT RESTED AND COMFORTABLE. WILL CONTINUE TO MONITOR.
--- NOTE | 2021-03-17 12:20 | NUR ---
SEEN AND EXAMINED BY .
--- NOTE | 2021-03-17 12:25 | NUR ---
IV LINE ESTABLISHED BLOOD DRAWN AND SENT TO LAB.
--- NOTE | 2021-03-17 12:38 | NUR ---
URINE SPECIMEN COLLECTED AND SENT TO LAB.
[2021-03-17 12:41] LABS: BASOPHILS # (AUTO) 0.1 K/uL (0.0-0.2); BASOPHILS % (AUTO) 0.9 % (0.0-2.0); EOSINOPHILS % (AUTO) 1.6 % (0.0-6.0); HEMATOCRIT 33 % (33-45); HEMOGLOBIN 10.7 g/dL (11.5-14.8); LYMPHOCYTES # (AUTO) 3.2 K/uL (0.8-4.8); LYMPHOCYTES % (AUTO) 35.5 % (20.0-44.0); MEAN CORPUSCULAR HGB CONC 33 g/dl (31.0-36.0); MEAN CORPUSCULAR VOLUME 88 fL (82-100); MONOCYTES # (AUTO) 0.8 K/uL (0.1-1.30); MONOCYTES % (AUTO) 9.4 % (2.0-12.0); NEUTROPHILS # (AUTO) 4.8 K/uL (1.8-8.9); NEUTROPHILS % (AUTO) 52.6 % (43.0-81.0); PLATELET COUNT (AUTO) 385 K/uL (150-450); RED BLOOD CELL COUNT(AUTO) 3.76 MIL/uL (4.0-5.2)
[2021-03-17 12:53] LABS: BILIRUBIN,URINE Negative (NEGATIVE); COLOR,URINE YELLOW (YELLOW); LEUKOCYTE ESTERASE ,URINE Small (NEGATIVE); NITRITE, URINE Negative (NEGATIVE); PH,URINE 5.5 (5.0-8.0); PROTEIN,URINE 100 mg/dl (NEGATIVE); UGLUCOSE Negative (NEGATIVE); UROBILINOGEN,URINE 0.2 EU/dL (0.2)
[2021-03-17 12:54] LABS: CALCIUM, SERUM 8.7 mg/dL (8.5-10.1); CARBON DIOXIDE 25 mmol/L (21-32); CHLORIDE 107 mmol/L (98-107); GLUCOSE 115 mg/dL (74-106); POTASSIUM 4.1 mmol/L (3.5-5.1); SODIUM SERUM 139 mmol/L (136-145); UREA NITROGEN, BLOOD 16 mg/dL (7-18)
[2021-03-17 13:00] LABS: RBC,URINE 21-50 /HPF (0-2)
[2021-03-17 13:01] LABS: BACTERIA,URINE Few /HPF (None Seen); SQUAMOUS EPITHELIAL CELL,UR 0-2 /HPF (None Seen)
[2021-03-17 13:09] LABS: ALANINE AMINOTRANSFERASE 26 U/L (12-78); ALBUMIN 3.3 g/dL (3.4-5.0); ALKALINE PHOSPHATASE 56 U/L (46-116); ASPARTATE AMINOTRANSFERASE 20 U/L (15-37); BILIRUBIN,DIRECT 0.1 mg/dL (0.0-0.2); BILIRUBIN,TOTAL 0.3 mg/dL (0.2-1.0); TOTAL PROTEIN, SERUM 8.2 g/dL (6.4-8.2)
[2021-03-17] MEDS ORDERED: METR500T PO (14:30)
[2021-03-17] MEDS ORDERED: CIPR-262 PO (14:30)
[2021-03-17 14:40] VITALS: BP 125/73
--- NOTE | 2021-03-17 14:40 | NUR ---
IV removed. Catheter intact and site benign. Pressure and 4x4 applied to site. No bleeding noted. Patient discharged to home in stable condition. Written and verbal after care instructions given. Patient verbalizes understanding of instruction.
== END 2021-03-17 14:40 | disposition home or self-care (01) ==
LOC: ER 12:04
DX: N20.0 Calculus of kidney (principal); K52.9 Noninfective gastroenteritis and colitis, unspecified; E11.9 Type 2 diabetes mellitus without complications; Z98.890 Other specified postprocedural states; Z79.899 Other long term (current) drug therapy
CPT/HCPCS: 36415; 71045-TC; 74018; 80048-TC; 80076-TC; 81001; 83605-TC; 84484-TC; 85025-TC; 85730-TC; 87040-TC; 87086-TC

== ENCOUNTER 2023-12-26 21:08 | Emergency (ER) | payer BC, OTHER ==
[~2023-12-26] VITALS: Ht 154.9 cm; Wt 61.2 kg
[~2023-12-26 21:08] MED LIST changes: +CIPR-262 PO; +METR500T PO
[2023-12-26] MEDS ORDERED: KETOROLAC TROMETHAMINE INJ 30 MG/ML VIAL ONE (21:26)
[2023-12-26] MEDS: KETOROLAC TROMETHAMINE INJ 30 MG/ML VIAL IM ONE (21:32)
[2023-12-26] MEDS ORDERED: METHOCARBAMOL (500MG) 500 MG TABLET ONE (21:47)
[2023-12-26] MEDS: METHOCARBAMOL (500MG) 500 MG TABLET PO ONE (21:53)
[2023-12-26] MEDS ORDERED: METH-647 PO (23:32)
[2023-12-26] MEDS ORDERED: IBUP-1953 PO (23:32)
[2023-12-26 23:47] VITALS: BP 135/62; TEMP 98.8; O2SAT 96
== END 2023-12-26 23:48 | disposition home or self-care (01) ==
LOC: ER 21:11
DX: M54.41 Lumbago with sciatica, right side (principal); E11.9 Type 2 diabetes mellitus without complications; Z87.442 Personal history of urinary calculi
CPT/HCPCS: 99285; 72131; 96372; J1885